=== PATIENT | male | born 1960 | race Hispanic/Latino ===

== ENCOUNTER 2017-11-17 08:50 | Emergency (ER) | payer OTHER ==
[~2017-11-17] VITALS: Ht 175.3 cm; Wt 97.5 kg
[2017-11-17] MEDS ORDERED: IPRATROPIUM BROMIDE 0.02% 2.5 ML NEB NEB STA (09:03)
[2017-11-17] MEDS ORDERED: METHYLPREDNISOLONE SOD SUCC 125 MG/2ML VIAL IV STA (09:03)
[2017-11-17] MEDS ORDERED: ALBUTEROL SULF 0.083% NEB SOLN 3 ML NEB NEB STA (09:03)
[2017-11-17] MEDS ORDERED: SODIUM CHLORIDE 0.9% 500ML 500 ML IV STA (09:20)
[2017-11-17] MEDS ORDERED: ASPIRIN 81 MG CHEW TAB PO ONE ×2 (09:30)
--- NOTE | 2017-11-17 09:33 | Diagnostic Imaging Report ---
PROCEDURE: X-RAY CHEST, TWO VIEWS COMPARISON: 11/01/13. INDICATIONS: COUGHING UP BLOOD, FLU FINDINGS: LUNGS: No consolidations or edema. PLEURA: No effusions or pneumothorax. HEART \T\ MEDIASTINUM: The heart is within normal size-limits. BONES \T\ SOFT TISSUES: No acute findings. CONCLUSION: No acute thoracic abnormality. Dictated by: Kingsley Cazares M.D. on 11/17/2017 at 9:42 Electronically approved by: Kingsley Cazarse M.D. on 11/17/2017 at 9:42
[2017-11-17 09:41] LABS: BASOPHILS % 0.7 % (0.0-1.0); EOSINOPHILS # (AUTO) 0.2 (0.0-0.4); EOSINOPHILS % 3.1 % (0.0-6.0); HEMATOCRIT 41.9 % (38.2-49.6); HEMOGLOBIN 15.2 g/dL (14.0-18.0); LYMPHOCYTES # (AUTO) 2.4 (1.0-3.2); LYMPHOCYTES % 40.7 % (18.0-39.1); MEAN CORPUSCULAR HEMOGLOBIN 35.7 pg (28-32); MEAN CORPUSCULAR HGB CONC 36.3 g/dL (31-35); MEAN CORPUSCULAR VOLUME 98.4 fL (81-99); MONOCYTES # (AUTO) 0.7 (0.2-0.8); MONOCYTES % 12.2 % (4.4-11.3); NEUTROPHILS # (AUTO) 2.5 (2.1-6.9); NEUTROPHILS % 43.1 % (38.7-80.0); PLATELET COUNT 69 x10e3/uL (140-360); RED BLOOD COUNT 4.26 x10e6/uL (4.3-5.7); RED CELL DISTRIBUTION WIDTH 12.5 % (11.7-14.4)
[2017-11-17] MEDS ORDERED: ASPIRIN 81 MG CHEW TAB ONE ×2 (09:51→09:57)
[2017-11-17 09:52] LABS: INR 1.09; PROTHROMBIN TIME 14.7 seconds (11.9-14.5)
[2017-11-17 10:00] LABS: ALANINE AMINOTRANSFERASE 63 IU/L (0-55); ALBUMIN 3.7 g/dL (3.5-5.0); ALBUMIN/GLOBULIN RATIO 0.7 (0.8-2.0); ALKALINE PHOSPHATASE 132 IU/L (40-150); ANION GAP 13.8 mmol/L (8-16); BLOOD UREA NITROGEN 10 mg/dL (7-26); BUN/CREATININE RATIO 8 (6-25); CALCIUM 9.6 mg/dL (8.4-10.2); CARBON DIOXIDE 24 mmol/L (22-29); CHLORIDE 100 mmol/L (98-107); CREATINE KINASE 77 IU/L (30-200); EST GLOMERULAR FILTRATION RATE > 60 ML/MIN (60-); GLUCOSE 314 mg/dL (74-118); POTASSIUM 3.8 mmol/L (3.5-5.1); SODIUM 134 mmol/L (136-145)
[2017-11-17 10:06] LABS: TROPONIN I 0.007 ng/mL (0-0.300)
[2017-11-17] MEDS ORDERED: CEFTRIAXONE SOD 1 GM VIAL IV SCH (10:30)
[2017-11-17] MEDS ORDERED: AZITHROMYCIN 500MG/NS 250 ML 250 ML IV ONE (10:30)
[2017-11-17 12:23] VITALS: BP 138/92
[2017-11-17] MEDS ORDERED: VENTOLIN HFA18 GM IH (12:31)
[2017-11-17] MEDS ORDERED: DOXYCYCLINE HY100 MG PO (12:31)
[2017-11-17] MEDS ORDERED: NAPROXEN250 MG PO (12:32)
[2017-11-17] MEDS ORDERED: PREDNISONE20 MG PO (12:32)
[2017-11-18] MEDS ORDERED: ASPIRIN 81 MG CHEW TAB PO SCH (09:00)
== END 2017-11-17 12:56 | disposition home or self-care (01) ==
LOC: ER 08:50
DX: R06.09 Other forms of dyspnea (principal); R05 Cough; J20.9 Acute bronchitis, unspecified; E11.65 Type 2 diabetes mellitus with hyperglycemia; I10 Essential (primary) hypertension
CPT/HCPCS: 36415; 71020; 80053; 82550; 82553; 82948; 83880; 84484; 85025; 85610; 87400; 93005; 94640; 99284; J0456; J0696; J2930; J7040